=== PATIENT | male | born 1965 | race Caucasian/White ===

== ENCOUNTER 2021-12-01 09:14 | Emergency (ER) | payer BC, OTHER ==
[2021-12-01] MEDS ORDERED: METHYLPREDNISOLONE 125 MG INJ ONE (09:57)
[2021-12-01 10:22] VITALS: BP 141/89; TEMP 98.2; O2SAT 100
--- NOTE | 2021-12-03 09:21 | ER ---
Nurse's Notes [facility] Name: Clement Winston Age: 55 yrs Sex: Male : 1965 Arrival Date: 12/01/2021 Time: 09:20 Bed 20 Private MD: Madhu Stack V Diagnosis: Polyneuropathy, unspecified Presentation: 12/01 09:22 Chief complaint: Patient states: pt took a home covid test about a week ago since pt angelo was around friends that had covid and it was positive. pt continues to have body aches unrelated to fibromyalgia anf nerve pain and chest pain. Coronavirus screen: Vaccine status: Patient reports being unvaccinated. Ebola Screen: Patient denies travel to an Ebola-affected area in the 21 days before illness onset. Initial Sepsis Screen: Does the patient meet any 2 criteria? No. Patient's initial sepsis screen is negative. Does the patient have a suspected source of infection? No. Patient's initial sepsis screen is negative. Risk Assessment: Do you want to hurt yourself or someone else? Patient reports no desire to harm self or others. Onset of symptoms was November 24, 2021. 09:22 Method Of Arrival: Ambulatory angelo 09:22 Acuity: JULY 3 angelo Triage Assessment: 10:02 General: Appears in no apparent distress. comfortable, Behavior is calm, cooperative. bm7 10:02 Pain: Denies pain. bm7 Historical: - Allergies: 09:26 No Known Allergies; angelo - Home Meds: : gabapentin 100 mg oral cap 1 cap once daily [Active]; angelo - Immunization history:: Adult Immunizations up to date. - Social history:: Smoking status: Patient reports the use of cigarette tobacco products, smokes one pack cigarettes per day. Patient uses street drugs, marijuana. - Family history:: not pertinent. - Hospitalizations: : No recent hospitalization is reported. Screenin:00 Abuse screen: Denies threats or abuse. Nutritional screening: No deficits noted. bm7 Tuberculosis screening: No symptoms or risk factors identified. Fall Risk None identified. Assessment: 10:00 Reassessment: Patient and/or family updated on plan of care and expected duration. Pain bm7 level reassessed. Patient is alert, oriented x 3, equal unlabored respirations, skin warm/dry/pink. Vital Signs: 09:22 BP 141 / 89; Pulse 76; Resp 17; Temp 98.2(T); Pulse Ox 100% ; Weight 65.77 kg; Height 5 angelo ft. 7 in. (170.18 cm); 09:22 Body Mass Index 22.71 (65.77 kg, 170.18 cm) angelo ED Course: 09:20 Patient arrived in ED. am2 09:20 Madhu Stack MD is Private Physician. am2 09:26 Triage completed. angelo 09:31 Shen Gutierrez MD is Attending Physician. rn 09:50 Maribell Kurtz, RN is Primary Nurse. bm7 10:00 No apparent distress. Resting quietly. bm7 10:00 Patient has correct armband on for positive identification. Bed in low position. Call bm7 light in reach. Side rails up X 1. Client placed on continuous cardiac and pulse oximetry monitoring. NIBP monitoring applied. 10:00 No provider procedures requiring assistance completed. Patient did not have IV access bm7 during this emergency room visit. 10:02 Arm band placed on left wrist. bm7 Administered Medications: 09:52 Drug: SOLU-Medrol (methylPREDNISolone sodium succinate) 125 mg Route: IM; Site: right bm7 gluteus; 09:53 Follow up: Response: No adverse reaction bm7 Medication: 10:00 VIS not applicable for this client. bm7 Outcome: 09:48 Discharge ordered by . rn 10:00 Discharged to home ambulatory, with family. bm7 10:00 Condition: stable 10:00 Discharge instructions given to patient, family, Instructed on medication usage, Demonstrated understanding of instructions, medications, Prescriptions given X 1. 10:02 Patient left the ED. bm7 Signatures: Shen Gutierrez MD MD rn Moreno, Amanda [facility] Maribell Kurtz, RN [facility] Au-Stager, LALA Higgins RN
--- NOTE | 2021-12-03 09:21 | EDPHYS ---
Physician Documentation [facility] Name: Clement Winston Age: 55 yrs Sex: Male : 1965 Arrival Date: 12/01/2021 Time: 09:20 Bed 20 Private MD: Madhu Stack V ED Physician Shen Gutierrez HPI: 12/01 09:41 This 55 yrs old Male presents to ER via Ambulatory with complaints of covid symptoms rn worsening. 09:41 Pt reports COVID + a week ago, overall does not feel sick anymore, no fever, no cough, rn no sob. No chest pain. Reports main problem and reason for visit is neuropathic pain and worsening of fibromyalgia pain. Takes gabapentin once daily. . Onset: The symptoms/episode began/occurred 1 week(s) ago. Severity of symptoms: At their worst the symptoms were moderate in the emergency department the symptoms are unchanged. The patient has experienced similar episodes in the past. The patient has not recently seen a physician. Historical: - Allergies: 09:26 No Known Allergies; angelo - Home Meds: 09:26 gabapentin 100 mg oral cap 1 cap once daily [Active]; angelo - Immunization history:: Adult Immunizations up to date. - Social history:: Smoking status: Patient reports the use of cigarette tobacco products, smokes one pack cigarettes per day. Patient uses street drugs, marijuana. - Family history:: not pertinent. - Hospitalizations: : No recent hospitalization is reported. ROS: 09:41 Constitutional: Negative for fever, chills, and weight loss, Eyes: Negative for injury, rn pain, redness, and discharge, Neck: Negative for injury, pain, and swelling, Cardiovascular: Negative for chest pain, palpitations, and edema, Respiratory: Negative for shortness of breath, cough, wheezing, and pleuritic chest pain, Abdomen/GI: Negative for abdominal pain, nausea, vomiting, diarrhea, and constipation, Back: Negative for injury and pain, MS/Extremity: Negative for injury and deformity, Skin: Negative for injury, rash, and discoloration, Neuro: Negative for headache, weakness and seizure Exam: 09:46 Constitutional: This is a well developed, well nourished patient who is awake, alert, rn and in no acute distress. Head/Face: Normocephalic, atraumatic. Eyes: Periorbital areas with no swelling, redness, or edema. ENT: No stridor Cardiovascular: Regular rate and rhythm. No pulse deficits. Respiratory: No increased work of breathing, no retractions or nasal flaring. Abdomen/GI: Soft, non-tender Skin: Warm, dry MS/ Extremity: Pulses equal, no cyanosis Neuro: Awake and alert, GCS 15 Vital Signs: 09: BP 141 / 89; Pulse 76; Resp 17; Temp 98.2(T); Pulse Ox 100% ; Weight 65.77 kg; Height 5 angelo ft. 7 in. (170.18 cm); 09:22 Body Mass Index 22.71 (65.77 kg, 170.18 cm) angelo MDM: 09:31 Patient medically screened. rn 09:46 Differential Diagnosis neuropathic pain, fibromyalgia, secondary effects of COVID. Data rn reviewed: vital signs, nurses notes, and as a result, I will discharge patient. Counseling: I had a detailed discussion with the patient and/or guardian regarding: the historical points, exam findings, and any diagnostic results supporting the discharge/admit diagnosis, the need for outpatient follow up, to return to the emergency department if symptoms worsen or persist or if there are any questions or concerns that arise at home. Special discussion: I discussed with the patient/guardian in detail that at this point there is no indication for admission to the hospital. It is understood, however, that if the symptoms persist or worsen the patient needs to return immediately for re-evaluation. ED course: Pt denies respiratory symptoms, no chest pain or symptoms of DVT/PE, here for neuropathic pain, acute on chronic after COVID. . 09:48 ED course: Recommended he takes gabapentin TID for 1 week then f/u with pcp to see if rn helped. Will add steroids. . Administered Medications: 09:52 Drug: SOLU-Medrol (methylPREDNISolone sodium succinate) 125 mg Route: IM; Site: right bm7 gluteus; 09:53 Follow up: Response: No adverse reaction bm7 Disposition Summary: 12/01/21 09:48 Discharge Ordered Location: Home rn Problem: new rn Symptoms: have improved rn Condition: Stable rn Diagnosis - Polyneuropathy, unspecified rn Followup: rn - With: Private Physician - When: As needed - Reason: Recheck today's complaints, Re-evaluation by your physician Discharge Instructions: - Discharge Summary Sheet rn - Peripheral Neuropathy rn Forms: - Medication Reconciliation Form rn - Thank You Letter rn - Antibiotic machine turner - Prescription Opioid Use rn Prescriptions: - Medrol (Pierce) 4 mg Oral Tablets, Dose Pack - take 1 tablet by ORAL route as directed - follow package instructions; 1 rn packet; Refills: 0, Product Selection Permitted Signatures: Shen Gutierrez MD MD rn McCarthy, Brittany, RN RN bm7 Gisela London RN RN angelo
== END 2021-12-01 10:02 | disposition home or self-care (01) ==
LOC: ER 09:14
DX: G62.9 Polyneuropathy, unspecified (principal); F17.210 Nicotine dependence, cigarettes, uncomplicated
CPT/HCPCS: 96372; 99283; J2930